=== PATIENT | male | born 1960 | race Caucasian/White ===

== ENCOUNTER → 2025-03-16 | Outpatient (CLI) | payer SELFPAY ==
--- NOTE | 2025-03-16 18:28 | RADIOLOGY REPORT ---
PROCEDURE: MR MRI LUMBAR SPINE INDICATION: SPONDYLOSIS W/O MYELOPATHY OR RADICULOPATHY,LUMBAR Exam Date: 03/16/2025 02:21 PM COMPARISON: None TECHNIQUE: MRI lumbar spine without intravenous contrast. FINDINGS: The lumbar alignment is intact. Marrow signal is heterogeneous with fatty change in the sacrum and L5 likely related to prior radiation. There are degenerative endplate changes including modic endplate changes with anterior and lateral osteophytes throughout the lumbar spine. The visualized distal spi nal cord and conus medullaris are within normal limits. The conus medullaris appears to terminate wi thin normal limits. The visualized retroperitoneal and paraspinal soft tissues are unremarkable. The following axial levels are detailed below: T12-L1: There is a mild circumferential disc bulge. No significant central canal or neuroforaminal s tenosis. L1-L2: There is a mild circumferential disc bulge. No significant central canal or neuroforaminal s tenosis. L2-L3: There is a moderate circumferential disc bulge complicated by facet arthropathy associated w ith mild to moderate bilateral neuroforaminal stenosis. No significant central canal stenosis. L3-L4: There is a moderate circumferential disc bulge complicated by facet arthropathy associated w ith mild to moderate bilateral neuroforaminal stenosis. No significant central canal stenosis. L4-L5: There is a severe circumferential disc bulge with a superimposed central disc protrusion com plicated by facet arthropathy narrowing the central canal to 2 mm with associated moderate left neuro foraminal stenosis. L5-S1: There is a mild circumferential disc bulge. No significant central canal or neuroforaminal st enosis. IMPRESSION: 1. Multilevel degenerative disease. Severe central canal stenosis L4-5 with an extruded disc fragmen t. Neurosurgical evaluation is recommended. Neural foraminal stenosis as above. Likely postradiation changes in the sacrum and L5. HS:Y
== END | disposition home or self-care (01) ==
LOC: MRI 13:27
PROVIDERS: ATTEND Orthopaedic Surgery
DX: M51.17 Intervertebral disc disorders with radiculopathy, lumbosacral region (principal); M54.50 Low back pain, unspecified; M47.816 Spondylosis without myelopathy or radiculopathy, lumbar region; M47.27 Other spondylosis with radiculopathy, lumbosacral region; M48.061 Spinal stenosis, lumbar region without neurogenic claudication
CPT/HCPCS: 72148